=== PATIENT | female | born 1945 | race Native Hawaiian/Other Pacific Islander ===

== ENCOUNTER 2017-05-11 01:35 | Inpatient (IN) | payer OTHER ==
[~2017-05-11] VITALS: Ht 157.5 cm; Wt 42.6 kg
--- NOTE | 2017-05-11 01:39 | NUR ---
Dr. Verduzco evaluating patient.
[2017-05-11] MEDS ORDERED: ACETAMINOPHEN ES 500 MG TABLET ONE (01:49)
[2017-05-11] MEDS ORDERED: CIME800T PO (01:58)
[2017-05-11] MEDS ORDERED: LORA-258 PO (01:58)
[2017-05-11] MEDS ORDERED: OLAN5TAB3 PO (01:58)
[2017-05-11] MEDS ORDERED: ATEN25TA PO (01:58)
[2017-05-11] MEDS ORDERED: ACETAMINOPHEN ES 500 MG TABLET PO ONE (02:00)
--- NOTE | 2017-05-11 02:00 | NUR ---
MEDICALLY CLEARED BY DR COX
--- NOTE | 2017-05-11 02:14 | NUR ---
TRANSFERED TO [facility] [place] [facility]IA [facility]
[2017-05-11] MEDS ORDERED: MAGNESIUM HYDROXIDE 30 ML LIQUID UDC PO PRN (02:15)
[2017-05-11] MEDS ORDERED: LORAZEPAM 0.5 MG TABLET PO PRN (02:15)
[2017-05-11] MEDS ORDERED: MAG HYDROX/AL HYDROX/SIMETH 30 ML LIQUID UDC PO PRN (02:15)
[2017-05-11] MEDS ORDERED: TEMAZEPAM 7.5 MG CAPSULE PO PRN (02:15)
[2017-05-11 02:30] VITALS: BP 150/75
--- NOTE | 2017-05-11 03:38 | NUR ---
PATIENT RECEIVED FROM [facility] AT [phone] JONES/SANDRA. PATIENT ALERT/ORIENTED X 2-3 FORGETFUL, FLAT AFFECT, AUDITORY HALLUCINATIONS " THEY ARE CALLING MY NAME THROUGH THE COMPUTER, [employer]." DENIES SI, DENIES VISUAL HALLUCINATIONS. NO AGGRESSIVE OR COMBATIVE BEHAVIOR NOTED, WILL CONTINUE TO MONITOR. PATIENT IS ABLE TO ANSWER BASIC QUESTIONS ON RECENT BOWEL OBSTRUCTION SURGERY 02/2017, MASTECTOMY TO RIGHT BREAST. PATIENT STATES LIVING ALONE. PATIENT ABLE TO SIGN ADMISSION PAPERS. PATIENT ORIENTED TO ROOM AND UNIT REQUIRES REDIRECTION, AND REINFORCEMENT. PATIENT IS AMBULATORY WITH UNSTEADY GAIT/WEAKNESS PT ORDERED. PATIENT HAD RECENT FALL AT HOME. PATIENT CHECKED FOR CONTRABAND AND CHANGED TO HOSPITAL GOWN, PANTS, AND SOCKS. SON EDDIE AWARE OF HIS MOM'S ADMISSION TO MHU. PATIENT IN NO APPARENT DISTRESS WILL CONTINUE TO MONITOR. PATIENT IS EASILY AGITATED, EASILY IRRITABLE, IS REDIRECTABLE. PATIENT'S RIGHTS HANDBOOK AND ADVISEMENT GIVEN TO PATIENT/AT BEDSIDE. PATIENT DENIES PAIN AT THIS TIME, WILL CONTINUE TO MONITOR. BED IN LOWEST POSITION, BED LOCKED, AND BED ALARM ON WHILE IN BED.
--- NOTE | 2017-05-11 06:39 | NUR ---
PATIENT PARANOID/SUSPICIOUS. SITTING UP IN BED " I'M WAITING FOR THE ADENIKE TO COME AND INTERVIEW ME." PATIENT STILL BELIEVES THAT THE COMPUTER IS CALLING HER NAME "CRISTINA" PATIENT DENIES WANTING TO HARM HERSELF, WILL CONTINUE TO MONITOR.
[2017-05-11 07:30] VITALS: BP 146/77
[2017-05-11] MEDS ORDERED: ATENOLOL 25 MG TABLET PO ONE (11:15)
--- NOTE | 2017-05-11 11:59 | NUR ---
Firearms Report: GENOVEVA completed and submitted [employer] Report on 05/11/17.
[2017-05-11 12:08] LABS: *BILIRUBIN,URIN NEGATIVE (NEGATIVE); *BLOOD, URINE Trace-intact (NEGATIVE); *CLARITY,URINE CLEAR (CLEAR); *COLOR,URINE YELLOW (YELLOW); *KETONES,URINE TRACE (NEGATIVE); *PROTEIN,URINE NEGATIVE (NEGATIVE); *UROBILINOGEN,URINE 0.2 E.U./dl (NORMAL); LEUKOCYTE ESTERASE ,URINE NEGATIVE (NEGATIVE); NITRITE, URINE NEGATIVE (NEGATIVE); PH,URINE 5.5 (5.0-8.0)
[2017-05-11] MEDS ORDERED: CLONIDINE HCL 0.1 MG TABLET PO PRN (12:15)
[2017-05-11 12:17] LABS: UGLUCOSE 1+ (NEGATIVE)
[2017-05-11 12:21] LABS: BACTERIA,URINE FEW /HPF (NONE SEEN); SQUAMOUS EPITHELIAL CELL,UR MODERATE /HPF (NONE SEEN); URINE AMORPHOUS URATE FEW /HPF; WBC,URINE 0-3 /HPF (0-3)
[2017-05-11 15:01] VITALS: BP 107/57
[2017-05-11] MEDS: FAMOTIDINE 20 MG TABLET PO SCH (16:03)
[2017-05-11] MEDS ORDERED: CIMETIDINE 800 MG PO SCH (17:00)
[2017-05-11 20:00] VITALS: BP 116/65
[2017-05-11] MEDS: risperiDONE 0.5 MG TABLET PO SCH (21:08)
--- NOTE | 2017-05-12 07:00 | NUR ---
RECEIVED Pt IN BED AWAKE, A+Ox2 TO SELF AND PLACE. POOR INSIGHT INTO REASON FOR ADMISSION AND PSYCHIATRIC CONDITION. Pt IS PASSIVE, GUARDED, AND GIVES MINIMAL DISCLOSURE. Pt PRESENTS WITH RESTRICTED AFFECT AND THOUGHT BLOCKING. Pt EXHIBITS FLAT AFFECT AND POOR EYE CONTACT. DENIES AH/VH, BUT APPEARS INTERNALLY PREOCCUPIED AND DEPRESSED. Pt ISOLATIVE, WITHDRAWN, AND RECLUSIVE TO HER ROOM. COMPLIANT WITH MEDICATIONS AND COOPERATIVE WITH CARE. VS STABLE, DENIES PAIN. TOOK A SHOWER THIS MORNING, SLEPT 4.30 HOURS.
[2017-05-12 07:40] VITALS: BP 124/73
[2017-05-12 08:40] LABS: BASOPHILS % (AUTO) 0.6 % (0.0-2.0); EOSINOPHILS # (AUTO) 0.1 K/uL (0.0-0.7); EOSINOPHILS % (AUTO) 1.8 % (0.0-7.0); HEMATOCRIT 43.8 % (31.2-41.9); HEMOGLOBIN 14.4 g/dL (10.9-14.3); LYMPHOCYTES # (AUTO) 1.3 K/uL (20.0-40.0); LYMPHOCYTES % (AUTO) 27.1 % (20.5-51.5); MEAN CORPUSCULAR HGB CONC 33 g/dL (32.3-35.6); MEAN CORPUSCULAR VOLUME 94.1 fL (75.5-95.3); MONOCYTES # (AUTO) 0.4 K/uL (2.0-10.0); MONOCYTES % (AUTO) 8.1 % (0.0-11.0); NEUTROPHILS # (AUTO) 2.9 K/uL (1.8-8.9); NEUTROPHILS % (AUTO) 62.4 % (38.5-71.5); PLATELET COUNT (AUTO) 200 K/uL (179-408); RED BLOOD CELL COUNT(AUTO) 4.65 MIL/uL (3.63-4.92); WHITE BLOOD COUNT (AUTO) 4.7 K/uL (3.8-11.8)
[2017-05-12 08:43] LABS: BILIRUBIN,TOTAL 0.2 mg/dL (0.2-1.0); CREATININE 0.5 mg/dL (0.6-1.3); MAGNESIUM 2.4 mg/dL (1.8-2.4); PHOSPHOROUS 3.9 mg/dL (2.5-4.9); TOTAL PROTEIN, SERUM 7.3 g/dL (6.4-8.2)
[2017-05-12 08:55] LABS: THYROID STIMULATING HORMONE 0.802 mIU/mL (0.358-3.740)
[2017-05-12] MEDS: ATENOLOL 25 MG TABLET PO SCH (08:57)
[2017-05-12] MEDS: FAMOTIDINE 20 MG TABLET PO SCH ×2 (08:57→16:21)
[2017-05-12 09:01] LABS: POTASSIUM 2.7 mmol/L (3.5-5.1)
[2017-05-12] MEDS: ACETAMINOPHEN 325 MG TABLET PO PRN ×2 (11:09→21:11)
[2017-05-12] MEDS ORDERED: POTASSIUM CHLORIDE 20 MEQ TAB.PRT.SR PO ONE ×2 (11:15→18:00)
--- NOTE | 2017-05-12 11:43 | NUR ---
Social Work UR Note: Pt. has Scan carved out to [employer] [phone]. [phone] and facesheet faxed to [facility] at fax [phone]. Left message for Katiuska assigned onsite case manager at [phone]. Also spoke with Dr Ramirez who said he thinks patient will be stable enough to leave on May 14.Katiuska was notified of this too. Requested she call this clinician if she needed any more information today. She will follow up with Mely on 05/13/17.
--- NOTE | 2017-05-12 14:13 | NUR ---
Social work discharge Note: Bre [facility] student spoke with patient's son, Rj [phone] and daughter in law today. They would like placement for patient. She has a budget of $1300-$1400 and has some savings to add to monthly costs at a facility. Bre agreed to call [facility] [phone] placement agent to assist with locating placement.
[2017-05-12 15:04] VITALS: BP 123/65
--- NOTE | 2017-05-12 17:56 | NUR ---
SARAH hicks NOTIFIED REGARDING REPEAT POTASSIUM LEVEL RESULT 3.4 WITH ORDER TO GIVE K-DUR 20 MEQ TAB. XI - ORDER CARRIED OUT.
[2017-05-12 19:54] VITALS: BP 128/79
[2017-05-12] MEDS: risperiDONE 0.5 MG TABLET PO SCH (20:50)
--- NOTE | 2017-05-13 06:56 | NUR ---
Pt NOTED TO RESPOND TO INTERNAL STIMULI LAST NIGHT, REMAINS INTERNALLY PREOCCUPIED. Pt HAD EPISODES OF DELUSIONAL BEHAVIORS STATING THAT HER SON WAS HERE AND NEEDED TO BE FED. Pt BEGAN PACING THE UNIT LOOKING FOR HER SON. Pt REDIRECTED. SLEPT 8 HOURS.
[2017-05-13 07:30] VITALS: BP 105/68
[2017-05-13] MEDS: FAMOTIDINE 20 MG TABLET PO SCH ×2 (08:03→17:14)
[2017-05-13] MEDS: ATENOLOL 25 MG TABLET PO SCH (09:55)
--- NOTE | 2017-05-13 14:50 | NUR ---
Initial Discharge Plan: Pt resides at [address] [place] [id number] . Once pt is stable she would like to discharge to an Assisted Living facility in [place]. SW will follow up with treating team and pts Rj BENOIT for treatment planning purposes. SW will ensure pt is safely and properly discharged.
--- NOTE | 2017-05-13 15:02 | NUR ---
Gps/Station Operator- Encouraged continued participation in her group therapy, needed prompting to initiate simple task. Safety reviewed and emphasized.Medication compliance.
[2017-05-13] MEDS: ACETAMINOPHEN 325 MG TABLET PO PRN (15:27)
--- NOTE | 2017-05-13 15:31 | NUR ---
Pt c/o 5/10 pain to right knee. Per pt, her acceptable pain level is 5/10. Offered Tylenol 650mg PO PRN. Pt agreed. Will monitor effectiveness.
[2017-05-13 16:02] VITALS: BP 115/69
--- NOTE | 2017-05-13 16:05 | NUR ---
UR Note: GENOVEVA faxed patient's most recent clinicals to GARCIA Harp at [facility] [[phone]; fax: [phone]]. Awaiting authorization. GENOVEVA will follow up with GARCIA.
--- NOTE | 2017-05-13 16:30 | NUR ---
Tylenol effective at this time for pt's right knee pain. Pt's pain down to 0/10. Will continue to monitor for change.
[2017-05-13 19:28] VITALS: BP 123/68
[2017-05-13] MEDS: risperiDONE 0.5 MG TABLET PO SCH (20:52)
[2017-05-14 07:52] VITALS: BP 116/75
[2017-05-14] MEDS: ATENOLOL 25 MG TABLET PO SCH ×2 (09:00→09:15)
[2017-05-14] MEDS: FAMOTIDINE 20 MG TABLET PO SCH ×2 (09:15→16:39)
[2017-05-14] MEDS: POTASSIUM CHLORIDE 8 MEQ TAB.PRT.SR PO SCH (09:16)
[2017-05-14 15:50] VITALS: BP 104/74
--- NOTE | 2017-05-14 16:20 | NUR ---
UR Note: GENOVEVA called GARCIA Bowman at [facility] [[phone] xt. [phone]] to follow up about patient. There was no answer and no voicemail option. SW will continue to follow up.
[2017-05-14] MEDS: risperiDONE 0.5 MG TABLET PO SCH (21:39)
[2017-05-14] MEDS: SIMVASTATIN 10 MG TABLET PO SCH (21:39)
[2017-05-14 21:49] VITALS: BP 124/73
[2017-05-14] MEDS: ACETAMINOPHEN 325 MG TABLET PO PRN (22:17)
[2017-05-15 07:06] LABS: BASOPHILS % (AUTO) 0.6 % (0.0-2.0); EOSINOPHILS # (AUTO) 0.1 K/uL (0.0-0.7); EOSINOPHILS % (AUTO) 1.9 % (0.0-7.0); HEMATOCRIT 42.7 % (31.2-41.9); HEMOGLOBIN 14.1 g/dL (10.9-14.3); LYMPHOCYTES # (AUTO) 1.8 K/uL (20.0-40.0); LYMPHOCYTES % (AUTO) 31.8 % (20.5-51.5); MEAN CORPUSCULAR HEMOGLOBIN 30.8 uug (24.7-32.8); MEAN CORPUSCULAR HGB CONC 33 g/dL (32.3-35.6); MEAN CORPUSCULAR VOLUME 93.2 fL (75.5-95.3); MONOCYTES # (AUTO) 0.5 K/uL (2.0-10.0); MONOCYTES % (AUTO) 8.4 % (0.0-11.0); NEUTROPHILS # (AUTO) 3.3 K/uL (1.8-8.9); NEUTROPHILS % (AUTO) 57.3 % (38.5-71.5); PLATELET COUNT (AUTO) 217 K/uL (179-408); RED BLOOD CELL COUNT(AUTO) 4.58 MIL/uL (3.63-4.92); WHITE BLOOD COUNT (AUTO) 5.7 K/uL (3.8-11.8)
[2017-05-15 07:53] VITALS: BP 105/62
[2017-05-15 08:03] LABS: BILIRUBIN,TOTAL 0.2 mg/dL (0.2-1.0); CREATININE 0.5 mg/dL (0.6-1.3); MAGNESIUM 2.6 mg/dL (1.8-2.4); POTASSIUM 3.8 mmol/L (3.5-5.1); TOTAL PROTEIN, SERUM 7.3 g/dL (6.4-8.2)
[2017-05-15] MEDS: FAMOTIDINE 20 MG TABLET PO SCH ×2 (08:46→16:58)
[2017-05-15] MEDS: POTASSIUM CHLORIDE 8 MEQ TAB.PRT.SR PO SCH (08:46)
[2017-05-15] MEDS: ATENOLOL 25 MG TABLET PO SCH (08:47)
[2017-05-15 15:36] VITALS: BP 122/69
--- NOTE | 2017-05-15 17:07 | NUR ---
GPS: Nursing Note: Thought Disorder: Patient is awake and responding to her name, isolative in her room, A/Ox2, internally preoccupied, needs minimal assistance with ADL's, gets easily anxious when redirected, minimal participation in therapeutic groups, believes that she is waiting for the ADENIKE, stated, "I am waiting for an interview with the ADENIKE...", redirected and reoriented to reality during shift, unkempt appearance, unable to formulate a viable plan for self care, continue with treatment plan.
[2017-05-15 20:00] VITALS: BP 119/68
[2017-05-15] MEDS: risperiDONE 0.5 MG TABLET PO SCH (21:11)
[2017-05-15] MEDS: SIMVASTATIN 10 MG TABLET PO SCH (21:11)
--- NOTE | 2017-05-16 05:58 | NUR ---
PATIENT DID NOT EXHIBIT ANY BEHAVIORAL SYMPTOMS THROUGH THE NIGHT. SHE SLEPT FOR APPROX.6;5HRS.WILL CONTINUE TO MONITOR.
[2017-05-16 08:23] VITALS: BP 111/70
[2017-05-16] MEDS: POTASSIUM CHLORIDE 8 MEQ TAB.PRT.SR PO SCH (08:30)
[2017-05-16] MEDS: FAMOTIDINE 20 MG TABLET PO SCH ×2 (08:30→16:53)
[2017-05-16] MEDS: ATENOLOL 25 MG TABLET PO SCH (08:31)
[2017-05-16] MEDS: DOCUSATE SODIUM 100 MG CAPSULE PO SCH ×2 (10:30→10:56)
[2017-05-16] MEDS: MAGNESIUM HYDROXIDE 30 ML LIQUID UDC PO ONE ×2 (10:56→11:03)
[2017-05-16 16:25] VITALS: BP 106/62
[2017-05-16 20:00] VITALS: BP 120/68
--- NOTE | 2017-05-16 20:30 | NUR ---
RECEIVED PATIENT IN HER ROOM IN BED, SHE IS NOTED AWAKE A/O X 2. SHE IS NOTED CALM AND COOPERATIVE. HOWEVER, SHE REMAINS WITHDRAWN IN HER ROOM. DENIES SI V/H OR AH. PT COMPLIANT WITH MEDICATION REGIMENT AND PLAN OF CARE. SAFETY EMPHASIS, WILL CONTINUE TO MONITOR.
[2017-05-16] MEDS: SIMVASTATIN 10 MG TABLET PO SCH (20:42)
[2017-05-16] MEDS: risperiDONE 0.5 MG TABLET PO SCH (20:42)
[2017-05-17 07:30] VITALS: BP 112/76
[2017-05-17] MEDS: POTASSIUM CHLORIDE 8 MEQ TAB.PRT.SR PO SCH (08:54)
[2017-05-17] MEDS: FAMOTIDINE 20 MG TABLET PO SCH ×2 (08:54→17:03)
[2017-05-17] MEDS: ATENOLOL 25 MG TABLET PO SCH (08:54)
--- NOTE | 2017-05-17 09:59 | NUR ---
UR Note: GENOVEVA faxed patient's most recent clinicals to GARCIA Bowman at [facility] [[phone]; fax: [phone]]. Awaiting authorization. GENOVEVA will follow up with GARCIA.
--- NOTE | 2017-05-17 11:22 | NUR ---
UR Note: GENOVEVA spoke with GARCIA Bowman at [facility] [[phone] Ex. [phone]] and told her that patient is still in need of placement. GARCIA Bowman stated she will follow up with GENOVEVA.
--- NOTE | 2017-05-17 14:39 | NUR ---
UR Note: GENOVEVA left a voicemail for GARCIA Bowman at [facility] [[phone]] regarding authorization for patient. GENOVEVA will continue to follow up.
[2017-05-17 15:35] VITALS: BP 114/69
--- NOTE | 2017-05-17 16:01 | NUR ---
DC Note: Patient will be discharged home with her son Rj [[address] [place] [address]; [phone]] via private transportation. GENOVEVA spoke with patient's son who stated he will pickle solution maker patient around 7pm. Patient's son is aware and agreeable to discharge plans. Patient is aware and agreeable to discharge plans. Patient will follow up with her lobsterman Dr. Marcella Irizarry [[address] [place] [address]]. Patient will also follow up with a psychiatrist through the [facility] [[address] [place] [address]; [phone]]. GENOVEVA spoke with Danelle dickerson [facility] [[phone] Ext. [phone]] who will schedule an appointment for patient. GENOVEVA also referred patient's family to [facility] [[phone]] to assist family with long-term placement.
--- NOTE | 2017-05-17 17:37 | NUR ---
RECEIVED A PHONE CALL FROM 'S SON EDDIE. HE WAS ASKING WHY HE NEEDS TO MATERIALS AND CORROSION ENGINEER THE PATIENT AND WHY THE PATIENT IS NOT DISCHARGED TO A FACILITY. THE SON STATED THAT HE DOES NOT FEEL THAT THE PATIENT IS SAFE TO GO HOME. THE SON WAS EXPLAINED THAT IT IS THE ARRANGEMENT THAT WERE MADE AND THERE WILL BE A FOLLOW UP WITH DAVID. THE SON SEEMED LIKE HE CHANGED HIS MIND ABOUT PICKING UP THE PATIENT AND WAS ASKING WHAT WOULD HAPPEN IF THE PATIENT IS NOT PICKED UP TODAY. LATER, A FEMALE CALLER (SHE DID NOT INTRODUCE HERSELF) TOOK THE PHONE AND STARTED TO TALK RAPIDLY IN A LOUD VOICE, SAYING THAT THEY WILL NOT MATERIALS AND CORROSION ENGINEER THE PATIENT TONIGHT AND THAT THE HOSPITAL MUST KEEP THE PATIENT UNTIL SHE IS SAFE TO GO. SHE SAID THAT THEY MAY MATERIALS AND CORROSION ENGINEER THE PATIENT IN THE MORNING, BUT NOT TONIGHT. THE FEMALE CALLER APPEARED UPSET AND WOULD NOT LISTEN TO EXPLANATIONS AND SHE HUNG UP.
[2017-05-17] MEDS: SIMVASTATIN 10 MG TABLET PO SCH (19:24)
[2017-05-17 19:45] VITALS: BP 117/72
--- NOTE | 2017-05-17 20:10 | NUR ---
DISCHARGE NOTE:PT'S SON-EDDIE BARBOSA CAME TO DIRECTOR CHECK THE PT.HS MEDS WERE GIVEN,TAKEN W/OUT DIFF.D/C INSTRUCTION INCLUDING PRESCRIPTIONS AND D/C PACKET WERE GIVEN TO PT AND FAMILY.PT IS A/O X2-3,QUIET,CALM AND COOPERATIVE.UP IN W/C, CANE WAS GIVEN BACK TO THE PT.STAFF BROUGHT HER TO HER CAR ACCOMPANIED BY HER FAMILY-SON & SISTER.IN NO ACUTE DISTRESS NOTED @ THE TIME OF DISCHARE.
[2017-05-17] MEDS ORDERED: risperiDONE 0.5 MG TABLET PO SCH ×2 (21:00)
[2017-05-17] MEDS ORDERED: risperiDONE 1 MG TABLET PO SCH (21:00)
== END 2017-05-17 20:10 | disposition home or self-care (01) | DRG 885 ==
LOC: ER 01:42 → GPS 02:07
PROVIDERS: ADMIT Psychiatry & Neurology Psychiatry; ATTEND Nurse Practitioner Acute Care
DX: F23 Brief psychotic disorder (principal); I34.1 Nonrheumatic mitral (valve) prolapse; E83.41 Hypermagnesemia; E78.5 Hyperlipidemia, unspecified; G89.29 Other chronic pain; Z85.3 Personal history of malignant neoplasm of breast; Z90.11 Acquired absence of right breast and nipple; Z90.49 Acquired absence of other specified parts of digestive tract; E87.6 Hypokalemia; M19.90 Unspecified osteoarthritis, unspecified site; I10 Essential (primary) hypertension; Z91.14 Patient's other noncompliance with medication regimen; R73.9 Hyperglycemia, unspecified; M79.605 Pain in left leg; M79.604 Pain in right leg
CPT/HCPCS: 36415; 83735; 84100; 84132; 84443; 85025; 87086; 93005; A4663; A9150